=== PATIENT | female | born 1980 | race Caucasian/White ===

== ENCOUNTER 2016-08-17 06:19 | Day surgery (SDC) | payer OTHER ==
[2016-08-15 10:52] VITALS: BMI 24.7
[2016-08-17] MEDS ORDERED: BUPIVACAINE HCL/EPINEPHRINE/PF 30 ML VIAL IJ ONE (07:03)
[2016-08-17] MEDS ORDERED: PROPOFOL 20 ML ONE ×2 (07:10)
[2016-08-17] MEDS ORDERED: MIDAZOLAM HCL 2 MG/2 ML SINGLE DOSE VIAL ONE (07:11)
[2016-08-17] MEDS ORDERED: SUCCINYLCHOLINE CHLORIDE 200 MG/10 ML VIAL ONE (07:11)
[2016-08-17] MEDS ORDERED: KETOROLAC TROMETHAMINE 30 MG/1 ML VIAL ONE (07:56)
[2016-08-17] MEDS ORDERED: ceFAZolin SODIUM 1 GM VIAL ONE (07:56)
[2016-08-17] MEDS ORDERED: DEXAMETHASONE SOD PHOSPHATE 4 MG/1 ML VIAL ONE (07:56)
[2016-08-17] MEDS ORDERED: ONDANSETRON 4 MG/2 ML VIAL ONE (07:56)
--- NOTE | 2016-08-17 08:27 | DS ---
Physical Examination Vital Signs: Vital Signs Temperature 97.8 F 08/17/16 06:38 Pulse Rate 92 H 08/17/16 06:38 Respiratory Rate 16 08/17/16 06:38 Blood Pressure 122/78 08/17/16 06:38 O2 Sat by Pulse Oximetry (%) 98 08/17/16 06:38 Discharge Summary Reason For Visit: LATERAL MENISCAL TEAR, CHONDROMALACIA, RIGHT KNEE Condition: Good - Instructions Diet, Activity, Other Instructions: Post Operative Instructions: Knee Arthroscopy Dr Earle Edwards 1. Pain following an arthroscopy is variable. Some patients will have more pain than others. You have been provided with a prescription for medication that contains a narcotic. You are not allowed to drive while on this medication. You should NOT take Tylenol (Acetaminophen) when taking the pain medication ( it will result in an overdose). Feel free to take medications such as Ibuprofen or Naprosyn in addition to the pain medicine if you do not have any problems with the NSAID class of medications. 2. You are allowed to remove the bandages and shower in 24 hours unless directed otherwise. You are not allowed to bathe or go swimming until the sutures are removed. Put band-aids on the sutures after your shower and do not put any creams or lotions over the incisions. 3. You are allowed to put all your weight on the leg and bend your knee, unless directed otherwise. 4. Apply ice to the knee for 15 min every hour or so. You may continue this for as many days as you like. 5. Please call the office to schedule a visit to have your sutures removed. 6. If for any reason you believe you may have an infection or are concerned, please feel free to call me. I can be reached through our office number 24 hours a day. 7. Please call our office with any questions; we will review the surgical findings during your post operative visit. Disposition: HOME - Home Medications Comprehensive Discharge Medication List: Ambulatory Orders Cetirizine HCl [Zyrtec -] 10 mg PO DAILY PRN 10/13/15 Levothyroxine [Synthroid -] 88 mcg PO DAILY 10/13/15 Montelukast Na [Singulair -] 10 mg PO HS PRN 10/13/15 Escitalopram Oxalate [Lexapro -] 10 mg PO DAILY 08/15/16 Oxycodone HCl/Acetaminophen [Percocet 5-325 mg Tablet -] 1 - 2 tab PO Q6H PRN MDD 8 08/15/16 Spironolactone 25 mg PO DAILY 08/15/16
--- NOTE | 2016-08-17 08:27 | OP ---
Operative Note - Note: Operative Date: 08/17/16 Pre-Operative Diagnosis: right knee LMT Operation: RKA, PLM Post-Operative Diagnosis: Same as Pre-op Surgeon: Earle Edwards Anesthesiologist/PHARMACY CARE COORDINATOR: Michael Reinoso Anesthesia: Local Operative Report Dictated: Yes
[2016-08-17] MEDS ORDERED: oxyCODONE HCL 5 MG TABLET ONE ×2 (08:47→09:25)
[2016-08-17] MEDS ORDERED: ONDANSETRON 4 MG/2 ML VIAL IVPUSH PRN (09:57)
[2016-08-17] MEDS ORDERED: oxyCODONE HCL 5 MG TABLET PO PRN ×2 (09:58)
[2016-08-17] MEDS ORDERED: LACTATED RINGERS SOLUTION 1,000 ML IV SCH (10:00)
[2016-08-17 11:02] VITALS: BP 110/60; PULSE 88; TEMP 98
--- NOTE | 2016-08-20 09:31 | PATH ---
Surgical Pathology Report Patient Name: LISSETT WOLFE Med. Rec. #: [id number] /Age/Gender: 1980 (Age: 36) / F Account: [id number] [facility] Taken: 08/17/2016 Received: 08/17/2016 Reported: 08/20/2016 Physicians: Earle Edwards M.D. Specimen(s) Received SHAVINGS RIGHT KNEE Clinical History Chondromalacia/lateral meniscus tear right knee Final Diagnosis KNEE, RIGHT, ARTHROSCOPIC SHAVING: FIBROCARTILAGE WITH MYXOID DEGENERATIVE CHANGES, ALONG WITH PORTIONS OF SYNOVIUM. Electronically Signed Shaji Guzman M.D. Gross Description Received in formalin labeled shavings right knee are multiple pieces of cervantes white tissue measuring 0.9 x 0.9 x 0.3 cm. in aggregate. Bike Technician sections are submitted in one cassette. (AF) [email or web address]/08/19/2016
== END 2016-08-17 10:30 | disposition home or self-care (01) ==
LOC: FASU 06:19
PROVIDERS: ATTEND Orthopaedic Surgery
PROC: 0SBC4ZZ Excision of Right Knee Joint, Percutaneous Endoscopic Approach (ICD-10-PCS; principal; 2016-08-17 08:00)
DX: S83.281A Other tear of lateral meniscus, current injury, right knee, initial encounter (principal); X58.XXXA Exposure to other specified factors, initial encounter; Y93.9 Activity, unspecified; Y92.9 Unspecified place or not applicable; M17.11 Unilateral primary osteoarthritis, right knee
CPT/HCPCS: 84703; 88304-TC